=== PATIENT | male | born 1975 | race African-American/Black ===

== ENCOUNTER 2022-08-14 12:16 | Emergency (ER) | payer MEDICAID ==
[~2022-08-14] VITALS: Ht 185.4 cm; Wt 146.0 kg
[2022-08-14 12:19] VITALS: BP 155/103
[2022-08-14] MEDS ORDERED: KETOROLAC 60MG/2ML VIAL IM ONE (13:15)
[2022-08-14] MEDS ORDERED: IBUP-2029 MT (14:11)
[2022-08-14] MEDS ORDERED: CYCL10TA21 MT (14:11)
== END 2022-08-14 14:30 | disposition home or self-care (01) ==
LOC: ER 12:16
DX: S70.02XA Contusion of left hip, initial encounter (principal); S70.01XA Contusion of right hip, initial encounter; F12.10 Cannabis abuse, uncomplicated; V49.9XXA Car occupant (driver) (passenger) injured in unspecified traffic accident, initial encounter; Y93.89 Activity, other specified; Y92.89 Other specified places as the place of occurrence of the external cause; Y99.8 Other external cause status
CPT/HCPCS: 96372; 99283; J1885

== ENCOUNTER 2022-09-18 15:41 | Emergency (ER) | payer MEDICAID ==
[~2022-09-18] VITALS: Ht 185.4 cm; Wt 145.0 kg
[~2022-09-18 15:41] MED LIST: CYCL10TA21 MT; IBUP-2029 MT
[2022-09-18 16:10] VITALS: BP 154/105
== END 2022-09-18 20:27 | disposition home or self-care (01) ==
LOC: ER 15:41
DX: R42 Dizziness and giddiness (principal); F12.10 Cannabis abuse, uncomplicated
CPT/HCPCS: 99281